=== PATIENT | male | born 1995 | race Caucasian/White ===

== ENCOUNTER 2019-03-14 20:34 | Inpatient (IN) | payer BC, OTHER ==
--- NOTE | 2019-03-14 20:51 | PDOC ---
Rapid Medical Evaluation Medical Evaluation: I have performed a brief in-person evaluation of this patient. The patient presents with a chief complaint of: Hx of HTN presents with c/o substernal CP today around 7 PM, worse with inspiration; denies fever, cough, sob; denies drug use, smoking, recent travel Pertinent physical exam findings: In NAD, lungs clear I have ordered the following: labs, ekg, cxr [unable to PERC out given tachycardia] The patient will proceed to the ED for further evaluation. 03/14/19 20:47
[2019-03-14] MEDS ORDERED: VALSARTAN 80 MG TABLET (UD) PO ONE (22:16)
[2019-03-14] MEDS ORDERED: VALSARTAN 80 MG TABLET (UD) ONE (22:23)
[2019-03-14 22:39] LABS: BASO % 1.1 % (0-2.0); EOS % 0.5 % (0-4.5); HEMATOCRIT 50.4 % (35.4-49); HEMOGLOBIN 17.4 GM/dL (11.7-16.9); LYMPH % 18.3 % (8-40); MCH 29.2 pg (25.7-33.7); MCHC 34.4 g/dl (32.0-35.9); MEAN CELL VOLUME 84.6 fl (80-96); MEAN PLT VOLUME 8.1 fl (7.5-11.1); MONO % 5.8 % (3.8-10.2); NEUT % 74.3 % (42.8-82.8); PLATELET COUNT 319 K/MM3 (134-434); RBC 5.95 M/mm3 (4.00-5.60); RDW 13.7 % (11.9-15.9); WHITE BLOOD COUNT 9.6 K/mm3 (4.0-10.0)
[2019-03-14 23:08] LABS: BLOOD UREA NITROGEN 16.4 mg/dL (7-18); CREATININE 1.2 mg/dL (0.55-1.3); POTASSIUM 4.1 mmol/L (3.5-5.1)
[2019-03-14] MEDS ORDERED: SODIUM CHLORIDE 0.9% 500 ML INFUS.BAG IV ONE (23:08)
--- NOTE | 2019-03-14 23:10 | PDOC ---
History of Present Illness - General Chief Complaint: Chest Pain Stated Complaint: HYPERTENSION,CHEST PAIN Time Seen by Provider: 03/14/19 20:47 - History of Present Illness Initial Comments: Mr. Cervantes is a 23 y/o male with PMH of left ventricular hypertrophy and renal hypertension presenting today with chest pain. Reports mid-sternal chest pain that started around 7pm today. Reports that it is intermittent in nature and episodes last around 2 min. Denies radiation. Reports that he has had chest pain before but has never had a work up. Reports that the pain is mildly exacerbated on inspiration. Denies fever, cough, trauma to the chest. Denies abdominal pain, nausea, vomiting. Denies shortness of breath. Denies leg swelling. He was taking a blood pressure medication but stopped over a year ago because he kept forgetting to take his medication. He has seen a child center assistant for the hypertension. Does not have a PCP but is planning on making an appt with one. Past History - Past Medical History Allergies/Adverse Reactions: Allergies Allergy/AdvReac Type Severity Reaction Status Date / Time No Known Allergies Allergy Verified 03/14/19 20:51 - Suicide/Smoking/Psychosocial Hx Smoking History: Never smoked Hx Alcohol Use: No Drug/Substance Use Hx: No Review of Systems - Review of Systems Comments:: ROS GENERAL/CONSTITUTIONAL: No fever or chills. No weakness._ HEAD, EYES, EARS, NOSE AND THROAT: No change in vision. No ear pain or discharge. No sore throat._ CARDIOVASCULAR: Reports chest pain. No shortness of breath. RESPIRATORY: Denies cough, hemoptysis_ GASTROINTESTINAL: No nausea, vomiting, diarrhea or constipation._ GENITOURINARY: No dysuria, frequency, or change in urination._ MUSCULOSKELETAL: No joint or muscle swelling or pain. No neck or back pain._ SKIN: No rash_ NEUROLOGIC: No headache, vertigo, loss of consciousness, or change in strength/ sensation._ ENDOCRINE: No increased thirst. No abnormal weight change_ HEMATOLOGIC/LYMPHATIC: No anemia, easy bleeding, or history of blood clots._ ALLERGIC/IMMUNOLOGIC: No hives or skin allergy._ *Physical Exam - Vital Signs Last Vital Signs Temp Pulse Resp BP Pulse Ox 99 F 116 H 19 190/102 H 100 03/14/19 20:48 03/14/19 20:48 03/14/19 20:48 03/14/19 20:48 03/14/19 20:48 - Physical Exam Comments: PE GENERAL: Awake, alert, and oriented to person/place/time, in no acute distress_ HEAD: No signs of trauma, normocephalic, atraumatic _ EYES: PERRLA, EOMI, sclera anicteric, conjunctiva clear_ ENT: Hearing grossly normal, nares patent, oropharynx clear without exudates. No uvular deviation. Moist mucosa_ NECK: Normal ROM, supple, no lymphadenopathy, JVD, or masses_ CHEST: No tenderness to palpation of the chest wall. LUNGS: No distress, speaks in full sentences, clear to auscultation bilaterally _ HEART: Regular rate and rhythm, normal S1 and S2, no murmurs appreciated, peripheral pulses normal and equal bilaterally._ ABDOMEN: Soft, nontender, normoactive bowel sounds. No guarding, no rebound. No masses_ EXTREMITIES: Normal inspection, Normal range of motion, no edema. No clubbing or cyanosis_ NEUROLOGICAL: Cranial nerves II through XII grossly intact. Normal speech, normal gait, no focal sensorimotor deficits _ SKIN: Warm, Dry, normal turgor, no rashes or lesions noted_ ED Treatment Course - LABORATORY CBC & Chemistry Diagram: 03/14/19 22:25 03/14/19 22:25 - ADDITIONAL ORDERS Additional order review: Laboratory Results 03/14/19 03/14/19 22:25 22:25 D-Dimer < 215 Sodium 140 Potassium 4.1 Chloride 106 Carbon Dioxide 26 Anion Gap 8 BUN 16.4 Creatinine 1.2 Est GFR (CKD-EPI)AfAm 98.19 Est GFR (CKD-EPI)NonAf 84.72 Random Glucose 95 Calcium 10.0 03/14/19 22:25 RBC 5.95 H MCV 84.6 MCHC 34.4 RDW 13.7 MPV 8.1 Neutrophils % 74.3 Lymphocytes % 18.3 Monocytes % 5.8 Eosinophils % 0.5 Basophils % 1.1 - Medications Given in the ED: ED Medications Discontinued Medications Generic Name Dose Route Start Last Admin Trade Name Freq PRN Reason Stop Dose Admin Valsartan 80 mg 03/14/19 22:16 03/14/19 22:35 Diovan - PO 03/14/19 22:17 80 mg ONCE ONE Administration Medical Decision Making - Medical Decision Making 23M with hx of HTN (not on medications) and LVH presenting today with new onset chest pain. Started at 7pm. Non-radiating. 03/14/19 2300 EKG shows sinus tachycardia HR 101, likely left ventricular hypertrophy, no ST elevation/depression, QTc 420 ms. 03/14/19 23:10 Pt reevaluated. BP 155/97 after diovan. 03/14/19 2345 Labs reviewed. Troponin wnl. CK elevated at 488. Given that the patient does not have a PCP or reliable follow up, has not been able to control his BP with medications over the past year, and new onset chest pain, plan to admit for cardiac monitoring, repeat trop, echo, cardiology consult. *DC/Admit/Observation/Transfer Diagnosis at time of Disposition: Chest pain Qualifiers: Chest pain type: unspecified Qualified Code(s): R07.9 - Chest pain, unspecified Hypertension Qualifiers: Hypertension type: unspecified Qualified Code(s): I10 - Essential (primary) hypertension - Discharge Dispostion Condition at time of disposition: Stable Decision to Admit order: Yes - Referrals - Patient Instructions - Post Discharge Activity
[2019-03-15] MEDS ORDERED: LISINOPRIL 5 MG TABLET (FP) PO SCH (00:23)
--- NOTE | 2019-03-15 00:23 | PDOC ---
Documentation entered by Leonardo Otero SCRIBE, acting as scribe for Rani Valdes MD. Rani Valdes MD: This documentation has been prepared by the Branden lizarraga Xhesika, SCRIBE, under my direction and personally reviewed by me in its entirety. I confirm that the documentation accurately reflects all work, treatment, procedures, and medical decision making performed by me. Attending Attestation - Resident Resident Name: Mark Muir - ED Attending Attestation I have performed the following: I have examined & evaluated the patient, The case was reviewed & discussed with the resident, I agree w/resident's findings & plan - HPI HPI: 03/14/19 22:24 The patient is a 23 year old male with a significant PMH of HTN who presents to the emergency department with substernal chest pain since 7PM. Patient states his chest pain is worsened with deep inspiration. The patient states he has not been complaint with his HTN medication for the past year. The patient denies shortness of breath, headache and dizziness. Denies fever, chills, cough, nausea , vomiting, diarrhea and constipation. Denies dysuria, frequency, urgency and hematuria. Allergies: NKDA - Physicial Exam PE: 03/14/19 22:25 GENERAL: Awake, alert, and fully oriented, in no acute distress HEAD: No signs of trauma EYES: PERRLA, EOMI, sclera anicteric, conjunctiva clear ENT: Auricles normal inspection, hearing grossly normal, nares patent, oropharynx clear without exudates. Moist mucosa NECK: Normal ROM, supple, no lymphadenopathy, JVD, or masses LUNGS: Breath sounds equal, clear to auscultation bilaterally. No wheezes, and no crackles HEART: Regular rate and rhythm, normal S1 and S2, no murmurs, rubs or gallops ABDOMEN: Soft, nontender, normoactive bowel sounds. No guarding, no rebound. No masses EXTREMITIES: Normal range of motion, no edema. No clubbing or cyanosis. No cords, erythema, or tenderness NEUROLOGICAL: Cranial nerves II through XII grossly intact. Normal speech, normal gait SKIN: Warm, Dry, normal turgor, no rashes or lesions noted. - Medical Decision Making 03/14/19 23:07 Pt's ddimer is negative Pt's Hb/HCT high; possibly dehydration. 03/14/19 23:08 CXR shows cardiomegaly. 03/15/19 03:32 Patient Name: MARLENE SYKES THIS IS A PRELIMINARY REPORT FROM [facility] DATE OF SERVICE: 2019-03-15 01:08:27 IMAGES: 21 EXAM: ULTRASOUND RENAL No renal mass, stones or hydronephrosis. 03/15/19 06:04 Pt will be admitted for serial cardiac enzymes, as his chest pain only started at 7PM in the night.
[2019-03-15] MEDS ORDERED: LACTATED RINGERS SOLUTION 1,000 ML/1,000 ML INFUS.BAG IV SCH (00:45)
[2019-03-15] MEDS ORDERED: LISINOPRIL 5 MG TABLET (FP) ONE (02:43)
--- NOTE | 2019-03-15 03:18 | HP ---
<Sanchez Kirk - Last Filed: 03/16/19 08:05> CHIEF COMPLAINT: PCP: HISTORY OF PRESENT ILLNESS: ER course was notable for: (1) (2) (3) Recent Travel: PAST MEDICAL HISTORY: PAST SURGICAL HISTORY: Social History: Smoking: Alcohol: Drugs: Family History: Allergies No Known Allergies Allergy (Verified 03/14/19 20:51) HOME MEDICATIONS: Home Medications Medication Instructions Recorded Mesalamine [Apriso] 1.5 gm PO DAILY 03/15/19 REVIEW OF SYSTEMS CONSTITUTIONAL: Absent: fever, chills, diaphoresis, generalized weakness, malaise, loss of appetite, weight change HEENT: Absent: rhinorrhea, nasal congestion, throat pain, throat swelling, difficulty swallowing, mouth swelling, ear pain, eye pain, visual changes CARDIOVASCULAR: Absent: chest pain, syncope, palpitations, irregular heart rate, lightheadedness , peripheral edema RESPIRATORY: Absent: cough, shortness of breath, dyspnea with exertion, orthopnea, wheezing, stridor, hemoptysis GASTROINTESTINAL: Absent: abdominal pain, abdominal distension, nausea, vomiting, diarrhea, constipation, melena, hematochezia GENITOURINARY: Absent: dysuria, frequency, urgency, hesitancy, hematuria, flank pain, genital pain MUSCULOSKELETAL: Absent: myalgia, arthralgia, joint swelling, back pain, neck pain SKIN: Absent: rash, itching, pallor HEMATOLOGIC/IMMUNOLOGIC: Absent: easy bleeding, easy bruising, lymphadenopathy, frequent infections ENDOCRINE: Absent: unexplained weight gain, unexplained weight loss, heat intolerance, cold intolerance NEUROLOGIC: Absent: headache, focal weakness or paresthesias, dizziness, unsteady gait, seizure, mental status changes, bladder or bowel incontinence PSYCHIATRIC: Absent: anxiety, depression, suicidal or homicidal ideation, hallucinations. PHYSICAL EXAMINATION Vital Signs - 24 hr 03/15/19 03/15/19 03/15/19 09:40 11:56 13:08 Temperature 98.2 F 98.9 F Pulse Rate 95 H Pulse Rate [ 98 H 80 Right] Respiratory 20 Rate Blood Pressure 158/110 H Blood Pressure 170/113 H 165/105 H [Left Arm] O2 Sat by Pulse 100 99 97 Oximetry (%) 03/15/19 03/15/19 03/15/19 16:12 18:20 21:00 Temperature 97.7 F 98 F Pulse Rate 70 73 Pulse Rate [ Right] Respiratory 19 18 Rate Blood Pressure 156/82 144/77 Blood Pressure [Left Arm] O2 Sat by Pulse 99 Oximetry (%) 03/15/19 03/16/19 03/16/19 22:00 02:00 06:00 Temperature 97.8 F 98.1 F 97.8 F Pulse Rate 84 59 L 59 L Pulse Rate [ Right] Respiratory 16 18 18 Rate Blood Pressure 123/87 138/79 140/68 Blood Pressure [Left Arm] O2 Sat by Pulse Oximetry (%) GENERAL: Awake, alert, and fully oriented, in no acute distress. HEAD: Normal with no signs of trauma. EYES: Pupils equal, round and reactive to light, extraocular movements intact, sclera anicteric, conjunctiva clear. No lid lag. EARS, NOSE, THROAT: Ears normal, nares patent, oropharynx clear without exudates. Moist mucous membranes. NECK: Normal range of motion, supple without lymphadenopathy, JVD, or masses. LUNGS: Breath sounds equal, clear to auscultation bilaterally. No wheezes, and no crackles. No accessory muscle use. HEART: Regular rate and rhythm, normal S1 and S2 without murmur, rub or gallop. ABDOMEN: Soft, nontender, not distended, normoactive bowel sounds, no guarding, no rebound, no masses. No hepatomegaly or splenomegaly. MUSCULOSKELETAL: Normal range of motion at all joints. No bony deformities or tenderness. No CVA tenderness. UPPER EXTREMITIES: 2+ pulses, warm, well-perfused. No cyanosis. No clubbing. No peripheral edema. LOWER EXTREMITIES: 2+ pulses, warm, well-perfused. No calf tenderness. No peripheral edema. NEUROLOGICAL: Cranial nerves II-XII intact. Normal speech. Normal gait. PSYCHIATRIC: Cooperative. Good eye contact. Appropriate mood and affect. SKIN: Warm, dry, normal turgor, no rashes or lesions noted, normal capillary refill. Laboratory Results - last 24 hr 03/15/19 03/15/19 03/15/19 00:30 05:15 06:30 Sodium 140 Potassium 4.2 Chloride 106 Carbon Dioxide 29 Anion Gap 5 L BUN 12.3 Creatinine 1.1 Est GFR (CKD-EPI)AfAm 109.09 Est GFR (CKD-EPI)NonAf 94.12 Random Glucose 91 Hemoglobin A1c % 5.3 Calcium 9.7 Phosphorus Magnesium 2.2 Total Bilirubin 0.6 AST 29 ALT 93 H Alkaline Phosphatase 73 Creatine Kinase 344 H Creatine Kinase Index 0.4 CK-MB (CK-2) 1.6 Troponin I < 0.02 Total Protein 8.0 Albumin 4.6 Triglycerides Cholesterol Total LDL Cholesterol HDL Cholesterol TSH 2.00 2.10 D Urine Color Urine Appearance Urine pH Ur Specific [place] Urine Protein Urine Glucose (UA) Urine Ketones Urine Blood Urine Nitrite Urine Bilirubin Urine Urobilinogen Ur Leukocyte Esterase 03/15/19 03/16/19 17:30 06:00 Sodium 142 Potassium 4.6 Chloride 106 Carbon Dioxide 29 Anion Gap 8 BUN 11.7 Creatinine 1.0 Est GFR (CKD-EPI)AfAm 122.41 Est GFR (CKD-EPI)NonAf 105.62 Random Glucose 85 Hemoglobin A1c % Calcium 9.7 Phosphorus 4.4 Magnesium 2.4 Total Bilirubin 1.0 AST 41 H ALT 105 H Alkaline Phosphatase 76 Creatine Kinase Creatine Kinase Index CK-MB (CK-2) Troponin I Total Protein 8.1 Albumin 4.5 Triglycerides 119 Cholesterol 133 Total LDL Cholesterol 82 HDL Cholesterol 32 L TSH Urine Color Yellow Urine Appearance Clear Urine pH 6.0 Ur Specific [place] 1.014 Urine Protein Negative Urine Glucose (UA) Negative Urine Ketones Negative Urine Blood Negative Urine Nitrite Negative Urine Bilirubin Negative Urine Urobilinogen 0.2 Ur Leukocyte Esterase Negative ASSESSMENT/PLAN: ATTENDING PHYSICIAN STATEMENT I saw and evaluated the patient. I reviewed the resident's note and discussed the case with the resident. I agree with the resident's findings and plan as documented. SUBJECTIVE: OBJECTIVE: ASSESSMENT AND PLAN: <Kalani Spicer - Last Filed: 03/18/19 06:32> CHIEF COMPLAINT: chest pain PCP: none HISTORY OF PRESENT ILLNESS: 23M w/ pmhx of renovascular HTN, Crohn's disease, ? HOCM presents in the ED with chest pain. States onset of chest pain happened while at a baseball game. Described as non-radiating, pressure-like pain localized to the mid-sternum. Has had similar pain like this in the past, but a recent BP check which showed systolic in the 170s prompted his ED visit for further work up. Pt has known history of HTN, but has stopped taking his BP medications for as he was asymptomatic. Does not follow up with a PCP. Additionally, pt does follow a GI physician as he has a known hx of Crohn's disease diagnosed years ago, with a recent exacerbation and was started on Apriso this past week. Currently does not take any other home meds regularly. ER course was notable for: (1) H/H 17.4/50.4, CK 488 (2) CXR, Renal U/S, CT abd ordered (3) Recent Travel: Denies PAST MEDICAL HISTORY: Renovascular HTN Crohn's Disease ? HOCM PAST SURGICAL HISTORY: Denies Social History: Smoking: Denies Alcohol: Denies Drugs: Denies Family History: Maternal Grandfather- DM Allergies No Known Allergies Allergy (Verified 03/14/19 20:51) HOME MEDICATIONS: Apriso QD REVIEW OF SYSTEMS CONSTITUTIONAL: Absent: fever, chills, diaphoresis, generalized weakness, malaise, loss of appetite, weight change HEENT: Absent: rhinorrhea, nasal congestion, throat pain, throat swelling, difficulty swallowing, mouth swelling, ear pain, eye pain, visual changes CARDIOVASCULAR: Absent: chest pain, syncope, palpitations, irregular heart rate, lightheadedness , peripheral edema RESPIRATORY: Absent: cough, shortness of breath, dyspnea with exertion, orthopnea, wheezing, stridor, hemoptysis GASTROINTESTINAL: Absent: abdominal pain, abdominal distension, nausea, vomiting, diarrhea, constipation, melena, hematochezia GENITOURINARY: Absent: dysuria, frequency, urgency, hesitancy, hematuria, flank pain, genital pain MUSCULOSKELETAL: Absent: myalgia, arthralgia, joint swelling, back pain, neck pain SKIN: Absent: rash, itching, pallor HEMATOLOGIC/IMMUNOLOGIC: Absent: easy bleeding, easy bruising, lymphadenopathy, frequent infections ENDOCRINE: Absent: unexplained weight gain, unexplained weight loss, heat intolerance, cold intolerance NEUROLOGIC: Absent: headache, focal weakness or paresthesias, dizziness, unsteady gait, seizure, mental status changes, bladder or bowel incontinence PSYCHIATRIC: Absent: anxiety, depression, suicidal or homicidal ideation, hallucinations. PHYSICAL EXAMINATION Vital Signs - 24 hr 03/14/19 20:48 Temperature 99 F Pulse Rate 116 H Respiratory 19 Rate Blood Pressure 190/102 H O2 Sat by Pulse 100 Oximetry (%) AAOx3. NAD. Resting comfortably. AT/NC. Moist mucus membranes. Lungs CTA B/L RRR. Normal S1, S2. No murmurs. Obese. Abd soft, NT/ND. No peripheral edema noted b/l. 2+ dorsalis pedis pulses b/l. Responds to questions appropriately. Laboratory Results - last 24 hr 03/14/19 03/14/19 03/14/19 22:25 22:25 22:25 WBC 9.6 RBC 5.95 H Hgb 17.4 H Hct 50.4 H MCV 84.6 MCH 29.2 MCHC 34.4 RDW 13.7 Plt Count 319 MPV 8.1 Absolute Neuts (auto) 7.2 Neutrophils % 74.3 Lymphocytes % 18.3 Monocytes % 5.8 Eosinophils % 0.5 Basophils % 1.1 Nucleated RBC % 0 D-Dimer < 215 Sodium 140 Potassium 4.1 Chloride 106 Carbon Dioxide 26 Anion Gap 8 BUN 16.4 Creatinine 1.2 Est GFR (CKD-EPI)AfAm 98.19 Est GFR (CKD-EPI)NonAf 84.72 Random Glucose 95 Calcium 10.0 Creatine Kinase Creatine Kinase Index CK-MB (CK-2) Troponin I 03/14/19 22:25 WBC RBC Hgb Hct MCV MCH MCHC RDW Plt Count MPV Absolute Neuts (auto) Neutrophils % Lymphocytes % Monocytes % Eosinophils % Basophils % Nucleated RBC % D-Dimer Sodium Potassium Chloride Carbon Dioxide Anion Gap BUN Creatinine Est GFR (CKD-EPI)AfAm Est GFR (CKD-EPI)NonAf Random Glucose Calcium Creatine Kinase 488 H Creatine Kinase Index 0.5 CK-MB (CK-2) 2.8 Troponin I < 0.02 IMAGING: * CXR: pending * Renal U/S: pending * CTAP: pending ASSESSMENT/PLAN: 23M w/ pmhx of renovascular HTN, Crohn's disease, ? HOCM presents in the ED with chest pain. #Hypertensive Emergency, 2/2 renovascular HTN vs. LVH -Initial BP 190/102 +chest pain; given Valsartan in ED x1 -Will start on Lisinopril 5 mg QD -Echo ordered to assess LV function -daily BP checks -Will likely need PCP follow up upon d/c for better BP management #Hx of LVH -echo ordered #Elevated CPK -IVf -cont to trend #Duplicated R renal artery -Pt states he has hx of renal HTN but was lost to follow up and has not been on medications. Will obtain additional imaging for further work up. -Renal U/S (prelim read) shows no evid of hydronephrosis -CTAP (prelim read) shows duplicate renal arteries; no stenosis noted b/l. Follow up final read. -Nephro consulted (Dr. Tipton) #Polycythemia; unknown etiology -Mildly elevated, H/H 17.4/50/4 -Retic count and erythropoietin ordered Prophylaxis DVT: Early ambulation, SCDs FEN -IVf -recheck lytes in AM -sodium-controlled diet Dispo -admit to tele Visit type - Emergency Visit Emergency Visit: Yes ED Registration Date: 03/14/19 Care time: The patient presented to the Emergency Department on the above date and was hospitalized for further evaluation of their emergent condition. - New Patient This patient is new to me today: No - Critical Care Critical Care patient: No ATTENDING PHYSICIAN STATEMENT I saw and evaluated the patient. I reviewed the resident's note and discussed the case with the resident. I agree with the resident's findings and plan as documented. SUBJECTIVE: OBJECTIVE: ASSESSMENT AND PLAN:
[2019-03-15 03:53] LABS: CHOLESTEROL 113 mg/dL (50-200); HDL CHOLESTEROL 26 mg/dL (40-60); TRIGLYCERIDES 148 mg/dL (0-150)
--- NOTE | 2019-03-15 04:19 | PN ---
Teaching Attending Note Name of Resident: Kalani Spicer ATTENDING PHYSICIAN STATEMENT I saw and evaluated the patient. I reviewed the resident's note and discussed the case with the resident. I agree with the resident's findings and plan as documented. Seen and examined; please refer to resident note for further hsitorical information. Briefly, this is a 23 y/o male presenting for chest pain at rest during an emotional moment during a baseball game associated with transient dizziness but no syncope. No current sx but noted to be hypertensive to the 190s on arrival. He is found on CT to have duplicated R-renal artery with patent arteries with no stenosis; he is also found to have small anterior mediastinal soft tissue as well as a transitional LS vertebrae and hepatic steatosis. No family hx HOCM but he tells us he has a history of "LVH;" no FH sudden CV , etc. VS, labs, imaging reviewed NAD, AAO, resting in bed RRR s1/2 no mgr Lungs CTAB, w/ sym exp NT ND +BS CN2-12 wnl, no fnd Normal mood, appropriate behavior CT prelim results discussed above with final report pending EKG reviewed Echo pending US renal wnl ASSESSMENT AND PLAN: Patient presents with CP, dizziness and elevated BP to the 190s suspicious for HTN emergency. He informs us that he had a diagnosis of a problem with his renal arteries and LVH but he was lost to followup and we have no old information available at this time. 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 -Consulting nephrology for further assessment; unclear if relation to supposed renovasc. HTN # Obesity -Door Puller regarding weight loss, consider referral to bariatrics # Hepatic Steatosis -Recommend weight loss Full Code
[2019-03-15 06:49] LABS: BASO % 1.1 % (0-2.0); EOS % 0.5 % (0-4.5); HEMATOCRIT 48.6 % (35.4-49); HEMOGLOBIN 16.8 GM/dL (11.7-16.9); LYMPH % 19.3 % (8-40); MCH 29.5 pg (25.7-33.7); MCHC 34.6 g/dl (32.0-35.9); MEAN CELL VOLUME 85.2 fl (80-96); MONO % 5.7 % (3.8-10.2); NEUT % 73.4 % (42.8-82.8); PLATELET COUNT 304 K/MM3 (134-434); RDW 13.6 % (11.9-15.9); WHITE BLOOD COUNT 10.5 K/mm3 (4.0-10.0)
[2019-03-15 07:28] LABS: ALBUMIN 4.6 g/dl (3.4-5.0); BILIRUBIN,TOTAL 0.6 mg/dL (0.2-1); BLOOD UREA NITROGEN 12.3 mg/dL (7-18); CALCIUM 9.7 mg/dL (8.5-10.1); CREATININE 1.1 mg/dL (0.55-1.3); MAGNESIUM 2.2 mg/dL (1.8-2.4); POTASSIUM 4.2 mmol/L (3.5-5.1)
[2019-03-15 07:29] LABS: COCAINE, UR NEGATIVE ng/ml (CUTOFF=300); METHADONE, UR NEGATIVE ng/ml (CUTOFF=300); OPIATES, URI NEGATIVE ng/ml (CUTOFF=300); PHENCYCLIDINE,URINE NEGATIVE ng/ml (CUTOFF=25); URINE AMPHETAMINES NEGATIVE ng/ml (CUTOFF=500); URINE BARBITURATES NEGATIVE ng/ml (CUTOFF=200); URINE BENZODIAZEPINES NEGATIVE ng/ml (CUTOFF=200)
[2019-03-15] MEDS ORDERED: amLODIPine BESYLATE 5 MG TABLET (FP) ONE (09:24)
[2019-03-15] MEDS ORDERED: amLODIPine BESYLATE 5 MG TABLET (FP) PO ONE ×2 (09:30→12:02)
[2019-03-15 13:42] VITALS: BMI 39.5
--- NOTE | 2019-03-15 14:05 | CON.NEP ---
Consult Consult Specialty:: Nephrology Reason for Consultation:: htn - History of Present Illness Chief Complaint: chest pain History of Present Illness: 23M w/ pmhx of HTN, Crohn's disease, ? HOCJed presents in the ED with chest pain. States onset of chest pain happened while at a baseball game. Described as non-radiating, pressure-like pain localized to the mid-sternum. Has had similar pain like this in the past, but a recent BP check which showed systolic in the 170s prompted his ED visit for further work up. Pt has known history of HTN, but has stopped taking his BP medications for as he was asymptomatic. Does not follow up with a PCP. Additionally, pt does follow a GI physician as he has a known hx of Crohn's disease diagnosed years ago, with a recent exacerbation and was started on Apriso this past week. Currently does not take any other home meds regularly. Pt denied ever being told he has renovascular hypertension. He does say he has had htn since age 12 and was on medication but did not take them for a very long time. Does have a family history of htn. No h/o urinary tract infections - History Source History Provided By: Patient, Medical Record - Past Medical History Cardio/Vascular: Yes: HTN Gastrointestinal: Yes: Crohn's Disease - Alcohol/Substance Use Hx Alcohol Use: No - Smoking History Smoking history: Never smoked Have you smoked in the past 12 months: No Home Medications - Allergies Allergies/Adverse Reactions: Allergies Allergy/AdvReac Type Severity Reaction Status Date / Time No Known Allergies Allergy Verified 03/14/19 20:51 - Home Medications Home Medications: Ambulatory Orders Mesalamine [Apriso] 1.5 gm PO DAILY 03/15/19 Review of Systems - Review of Systems Constitutional: reports: No Symptoms Eyes: reports: No Symptoms HENT: reports: No Symptoms Neck: reports: No Symptoms Cardiovascular: reports: Chest Pain Respiratory: reports: No Symptoms Gastrointestinal: reports: Rectal Bleeding Genitourinary: reports: No Symptoms Breasts: reports: No Symptoms Reported Musculoskeletal: reports: No Symptoms Integumentary: reports: No Symptoms Neurological: reports: No Symptoms Endocrine: reports: No Symptoms Hematology/Lymphatic: reports: No Symptoms Psychiatric: reports: No Symptoms Nephrology Consult - Height Height: 5 ft 9 in - Weight Weight: 267 lb 9.6 oz - BMI Body Mass Index (BMI): 39.5 - Lab Results CBC,BMP: CBC, BMP 03/15/19 06:30 03/15/19 06:30 Anion Gap: Anion Gap Anion Gap 5 MMOL/L (8-16) L 03/15/19 06:30 - Imaging Cat Scan: Report Reviewed Ultrasound: Report Reviewed - Physical Examination Vital Signs: Vital Signs Temperature 98.9 F 03/15/19 13:08 Pulse Rate 95 H 03/15/19 13:08 Respiratory Rate 20 03/15/19 13:08 Blood Pressure 158/110 H 03/15/19 13:08 O2 Sat by Pulse Oximetry (%) 97 03/15/19 13:08 Constitutional: Yes: No Distress, Calm Eyes: Yes: Conjunctiva Clear HENT: Yes: Atraumatic, Normocephalic Neck: Yes: Supple, Trachea Midline Cardiovascular: Yes: Regular Rate and Rhythm Respiratory: Yes: Regular, CTA Bilaterally Gastrointestinal: Yes: Normal Bowel Sounds, Soft, Other (no bruit) Renal/: Yes: WNL Musculoskeletal: Yes: WNL Extremities: Yes: WNL Edema: No Peripheral Pulses WNL: Yes Wound/Incision: Yes: Well Approximated Neurological: Yes: Alert, Oriented Psychiatric: Yes: Alert, Oriented Assessment/Plan IMPRESSION essential htn is likely.- very high due to noncompliance with meds. h/o Crohns does have a slight murmur PLAN already had CTA and renal sono which was normal Would give amlodipine and lisinopril to start check ua to see if he has proteinuria which may mean chronic gn is a cause for his BP cardio eval MV
--- NOTE | 2019-03-15 14:54 | CON.CARD ---
Consult Consult Specialty:: Cardiology Referred by:: Hospitalist Reason for Consultation:: Cardiac evaluation (Coverage for Dr. Wayne) - History of Present Illness Chief Complaint: Chest pain History of Present Illness: Patient is a 23 year old male [employer] with underlying history of HTN, Crohn's disease, ?HOCM who presents to ED with chest pain yesterday. He stopped taking his medication for HTN 1 year ago. Pain ws localized to mid sternum without radiation. Currently, he is asymptomatic. He denies shortness of breath or palpitations. He denies paroxysmal nocturnal dyspnea or orthopnea. He denies fever or chills. He denies nausea, vomiting, diarrhea or abdominal pain. He denies headache or lightheadedness. - History Source History Provided By: Patient, Medical Record Limitations to Obtaining History: No Limitations - Past Medical History Cardio/Vascular: Yes: HTN Gastrointestinal: Yes: Crohn's Disease - Past Surgical History Past Surgical History: Yes: None - Alcohol/Substance Use Hx Alcohol Use: No - Smoking History Smoking history: Never smoked Have you smoked in the past 12 months: No Home Medications - Allergies Allergies/Adverse Reactions: Allergies Allergy/AdvReac Type Severity Reaction Status Date / Time No Known Allergies Allergy Verified 03/14/19 20:51 - Home Medications Home Medications: Ambulatory Orders Mesalamine [Apriso] 1.5 gm PO DAILY 03/15/19 Family Disease History - Family Disease History Family Disease History: Diabetes: Grandparent Review of Systems - Review of Systems Constitutional: denies: Chills, Fever Cardiovascular: reports: Chest Pain. denies: Palpitations, Shortness of Breath Respiratory: denies: Cough, SOB, SOB on Exertion Gastrointestinal: denies: Abdominal Pain, Constipation, Diarrhea, Melena, Nausea , Rectal Bleeding, Vomiting Musculoskeletal: denies: Joint Pain Neurological: denies: Dizziness, Headache, Seizure, Syncope Vital Signs: Vital Signs Temperature 98.9 F 03/15/19 13:08 Pulse Rate 95 H 03/15/19 13:08 Respiratory Rate 20 03/15/19 13:08 Blood Pressure 158/110 H 03/15/19 13:08 O2 Sat by Pulse Oximetry (%) 97 03/15/19 13:08 Neck: Yes: Supple Respiratory: Yes: CTA Bilaterally Gastrointestinal: Yes: Normal Bowel Sounds, Soft. No: Tenderness Cardiovascular: Yes: Regular Rate and Rhythm JVD: No Carotid Bruit: No PMI: Non-Displaced Heart Sounds: Yes: S1, S2 Murmur: No: Systolic Murmur, Diastolic Murmur Edema: No - Other Data Labs, Other Data: CBC, BMP 03/15/19 06:30 03/15/19 06:30 Troponin, BNP 03/14/19 03/15/19 03/15/19 22:25 03:00 05:15 Troponin I < 0.02 < 0.02 B-Natriuretic Peptide < 5.0 L 03/15/19 06:30 Troponin I < 0.02 B-Natriuretic Peptide Troponin, BNP 03/14/19 03/15/19 03/15/19 22:25 03:00 05:15 Troponin I < 0.02 < 0.02 B-Natriuretic Peptide < 5.0 L 03/15/19 06:30 Troponin I < 0.02 B-Natriuretic Peptide Imaging - Results Chest X-ray: Report Reviewed (Unremarkable) Cat Scan: Report Reviewed (Abdominal CT noted) Ultrasound: Report Reviewed (Renal US noted) EKG: Report Reviewed Problem List - Problems (1) Crohns disease Code(s): K50.90 - CROHN'S DISEASE, UNSPECIFIED, WITHOUT COMPLICATIONS (2) Chest pain Code(s): R07.9 - CHEST PAIN, UNSPECIFIED Qualifiers: Chest pain type: unspecified Qualified Code(s): R07.9 - Chest pain, unspecified (3) Hypertension Code(s): I10 - ESSENTIAL (PRIMARY) HYPERTENSION Qualifiers: Hypertension type: unspecified Qualified Code(s): I10 - Essential (primary ) hypertension Assessment/Plan 1. HTN 2. Chest pain syndrome, atypical 3. Crohn's disease PLAN: 1. Unclear whether he has HOCM. Vasodilator such as Amlodipine should be avoided if he does have HOCM. ACEI can be used with caution although it is a afterload public health assistant. Ideally beta jonh would be suggested. Start Metoprolol Tartrate 25 mg BID and uptitrate 2. Echocardiography to assess LV/RV and valvular function 3. Renal input noted 4. Treatment for Crohn's 5. Troponins are negative Further plans are to follow Swapnil Bennett MD
[2019-03-15] MEDS ORDERED: METOPROLOL TARTRATE 25 MG TABLET (FP) PO ONE (15:30)
--- NOTE | 2019-03-15 16:39 | HOSP ---
Subjective - Review of Symptoms Events since last encounter: Patient is doing better with no acute distress. Discussed with gas or water meter installer , possible that the patient has Hocm, ordered echo for Sunday but the patient frank 't stay till Sunday , would like to follow up with the gas or water meter installer and have it done on Sunday. Medications to avoid at this time CCB. started on Toprol Xl by the gas or water meter installer and Lisinopril By , Dr. Bennett is ok with toprol and Lisinopril, will need to control the blood pressure closely and keep it under control. Studies Renal Us and abdomen and pelvis cta reviewed. Vital Signs Temperature 97.7 F 03/15/19 16:12 Pulse Rate 70 03/15/19 16:12 Respiratory Rate 19 03/15/19 16:12 Blood Pressure 156/82 03/15/19 16:12 O2 Sat by Pulse Oximetry (%) 97 03/15/19 13:08 Physical Examination Vital Signs: Vital Signs Temperature 97.7 F 03/15/19 16:12 Pulse Rate 70 03/15/19 16:12 Respiratory Rate 03/15/19 16:12 Blood Pressure 156/82 03/15/19 16:12 O2 Sat by Pulse Oximetry (%) 97 03/15/19 13:08 Labs: CBC, BMP 03/15/19 06:30 03/15/19 06:30
[2019-03-15 18:44] LABS: URINE APPEARANCE CLEAR; URINE BILIRUBIN NEGATIVE (NEGATIVE); URINE COLOR YELLOW; URINE GLUCOSE (UA) NEGATIVE (NEGATIVE); URINE KETONE NEGATIVE (NEGATIVE); URINE LEUK ESTERASE NEGATIVE (NEGATIVE); URINE NITRITE NEGATIVE (NEGATIVE); URINE PROTEIN NEGATIVE (NEGATIVE); URINE UROBILINOGEN 0.2 mg/dL (0.2-1.0)
[2019-03-15] MEDS: METOPROLOL TARTRATE 25 MG TABLET (FP) PO SCH (21:32)
[2019-03-16 07:29] LABS: ALBUMIN 4.5 g/dl (3.4-5.0); BLOOD UREA NITROGEN 11.7 mg/dL (7-18); CALCIUM 9.7 mg/dL (8.5-10.1); MAGNESIUM 2.4 mg/dL (1.8-2.4); PHOSPHOROUS 4.4 mg/dL (2.5-4.9); POTASSIUM 4.6 mmol/L (3.5-5.1); TOT PROT 8.1 g/dl (6.4-8.2)
--- NOTE | 2019-03-16 07:56 | PN ---
Teaching Attending Note Name of Resident: Danielle Omer ATTENDING PHYSICIAN STATEMENT I saw and evaluated the patient. I reviewed the resident's note and discussed the case with the resident. I agree with the resident's findings and plan as documented. SUBJECTIVE: Patient is feeling better but wants to go home. OBJECTIVE: Vital Signs Temperature 97.8 F 03/16/19 06:00 Pulse Rate 59 L 03/16/19 06:00 Respiratory Rate 18 03/16/19 06:00 Blood Pressure 140/68 03/16/19 06:00 O2 Sat by Pulse Oximetry (%) 99 03/15/19 21:00 GENERAL: The patient is awake, alert, and fully oriented, in no acute distress. HEAD: Normal with no signs of trauma. EYES: PERRL, extraocular movements intact, sclera anicteric, conjunctiva clear. No ptosis. ENT: Ears normal, nares patent, oropharynx clear without exudates, moist mucous membranes. NECK: Trachea midline, full range of motion, supple. LUNGS: Breath sounds equal, clear to auscultation bilaterally, no wheezes, no crackles, no accessory muscle use. HEART: Regular rate and rhythm, S1, S2 without murmur, rub or gallop. ABDOMEN: Soft, nontender, nondistended, normoactive bowel sounds, no guarding, no rebound, no hepatosplenomegaly, no masses. EXTREMITIES: 2+ pulses, warm, well-perfused, no edema. NEUROLOGICAL: Cranial nerves II through XII grossly intact. Normal speech, gait is stable . PSYCH: Normal mood, normal affect. SKIN: Warm, dry, normal turgor, no rashes or lesions noted CBCD WBC 10.5 K/mm3 (4.0-10.0) H 03/15/19 06:30 RBC 5.70 M/mm3 (4.00-5.60) H 03/15/19 06:30 Hgb 16.8 GM/dL (11.7-16.9) 03/15/19 06:30 Hct 48.6 % (35.4-49) 03/15/19 06:30 MCV 85.2 fl (80-96) 03/15/19 06:30 MCHC 34.6 g/dl (32.0-35.9) 03/15/19 06:30 RDW 13.6 % (11.9-15.9) 03/15/19 06:30 Plt Count 304 K/MM3 (134-434) 03/15/19 06:30 MPV 8.0 fl (7.5-11.1) 03/15/19 06:30 CMP Sodium 142 mmol/L (136-145) 03/16/19 06:00 Potassium 4.6 mmol/L (3.5-5.1) 03/16/19 06:00 Chloride 106 mmol/L (98-107) 03/16/19 06:00 Carbon Dioxide 29 mmol/L (21-32) 03/16/19 06:00 Anion Gap 8 MMOL/L (8-16) 03/16/19 06:00 BUN 11.7 mg/dL (7-18) 03/16/19 06:00 Creatinine 1.0 mg/dL (0.55-1.3) 03/16/19 06:00 Random Glucose 85 mg/dL (74-106) 03/16/19 06:00 Calcium 9.7 mg/dL (8.5-10.1) 03/16/19 06:00 Total Bilirubin 1.0 mg/dL (0.2-1) 03/16/19 06:00 AST 41 U/L (15-37) H 03/16/19 06:00 ALT 105 U/L (13-61) H 03/16/19 06:00 Alkaline Phosphatase 76 U/L (45-117) 03/16/19 06:00 Total Protein 8.1 g/dl (6.4-8.2) 03/16/19 06:00 Albumin 4.5 g/dl (3.4-5.0) 03/16/19 06:00 CARDIAC ENZYMES Creatine Kinase 344 U/L (26-308) H 03/15/19 06:30 Troponin I < 0.02 ng/ml (0.00-0.05) 03/15/19 06:30 Current Medications Generic Name Dose Route Start Last Admin Trade Name Freq PRN Reason Stop Dose Admin Lisinopril 10 mg 03/16/19 10:00 Prinivil PO DAILY TARYN Metoprolol Tartrate 25 mg 03/15/19 22:00 03/15/19 21:32 Lopressor - PO 25 mg BID TARYN Administration Home Medications Medication Instructions Recorded Mesalamine [Apriso] 1.5 gm PO DAILY 03/15/19 ASSESSMENT AND PLAN: Patient is a 23yo male with pmhx of HTN, Crohn's disease,possible HOCM as per patient had echo done in the past and was told he haS ventricular enlargement presents in the ED with chest pain. 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 Patient will follow up with for the echo and the [facility] as per cardio ok to have the echo as an outpatient since patient does not want to stay in the hospital for the echo. blood pressure is stable, will discharge the patient on lopressor and Lisinopril. #Elevated CPK s/p IVf discharge patient home on lisinopril and lopressor.
--- NOTE | 2019-03-16 09:07 | EKG ---
Test Reason : Blood Pressure : / mmHG Vent. Rate : 101 BPM Atrial Rate : 101 BPM P-R Int : 130 ms QRS Dur : 106 ms QT Int : 324 ms P-R-T Axes : 063 067 022 degrees QTc Int : 420 ms SINUS TACHYCARDIA POSSIBLE LEFT VENTRICULAR HYPERTROPHY NO PREVIOUS ECGS AVAILABLE Confirmed by DILAN DIAZ MD ([id number]) on 03/16/2019 9:07:01 AM Referred By: Confirmed By:DILAN DIAZ MD
[2019-03-16] MEDS: METOPROLOL TARTRATE 25 MG TABLET (FP) PO SCH (09:09)
--- NOTE | 2019-03-16 09:12 | PN ---
Progress Note, Physician Chief Complaint: Not in distress History of Present Illness: Patient was seen and examined. Awake and alert. Chart was reviewed Denies chest pain, SOB or palpitations - Current Medication List Current Medications: Active Medications Lisinopril (Prinivil) 10 mg PO DAILY [facility] Metoprolol Tartrate (Lopressor -) 25 mg PO BID [facility] Last Admin: 03/15/19 21:32 Dose: 25 mg - Objective Vital Signs: Vital Signs Temperature 97.8 F 03/16/19 06:00 Pulse Rate 59 L 03/16/19 06:00 Respiratory Rate 18 03/16/19 06:00 Blood Pressure 140/68 03/16/19 06:00 O2 Sat by Pulse Oximetry (%) 99 03/15/19 21:00 Eyes: Yes: PERRL HENT: Yes: Atraumatic Neck: Yes: Supple Cardiovascular: Yes: Regular Rate and Rhythm, S1, S2 Respiratory: Yes: CTA Bilaterally Gastrointestinal: Yes: Normal Bowel Sounds, Soft. No: Tenderness Edema: No Additional Findings/Remarks: - Review of Systems Constitutional: denies: Chills, Fever Cardiovascular: denies Chest Pain. denies: Palpitations, Shortness of Breath Respiratory: denies: Cough, SOB, SOB on Exertion Gastrointestinal: denies: Abdominal Pain, Constipation, Diarrhea, Melena, Nausea , Rectal Bleeding, Vomiting Musculoskeletal: denies: Joint Pain Neurological: denies: Dizziness, Headache, Seizure, Syncope Labs: CBC, BMP 03/15/19 06:30 03/16/19 06:00 Problem List - Problems (1) Crohns disease Code(s): K50.90 - CROHN'S DISEASE, UNSPECIFIED, WITHOUT COMPLICATIONS (2) Chest pain Code(s): R07.9 - CHEST PAIN, UNSPECIFIED Qualifiers: Chest pain type: unspecified Qualified Code(s): R07.9 - Chest pain, unspecified (3) Hypertension Code(s): I10 - ESSENTIAL (PRIMARY) HYPERTENSION Qualifiers: Hypertension type: unspecified Qualified Code(s): I10 - Essential (primary ) hypertension Assessment/Plan 1. HTN 2. Chest pain syndrome, atypical 3. Crohn's disease PLAN: 1. Continue Metoprolol Tartrate and Lisinopril for now. Avoid vasodilators in case he does have HOCM 2. Echocardiography to assess LV/RV and valvular function can be done as outpatient. HOCM needs to be ruled out 3. Treatment for Crohn's 4. Troponins are negative Further plans are to follow. Follow up as outpatient. Discharge planning Swapnil Bennett MD
[2019-03-16] MEDS ORDERED: amLODIPine BESYLATE 5 MG TABLET (FP) PO SCH (10:00)
[2019-03-16] MEDS ORDERED: LISINOPRIL 10 MG TABLET (FP) PO SCH (10:00)
[2019-03-16 10:28] VITALS: TEMP 98
[2019-03-16] MEDS ORDERED: ACETAMINOPHEN 325 MG TABLET (FP) PO ONE (10:28)
--- NOTE | 2019-03-16 11:44 | PN ---
Progress Note (short form) - Note Progress Note: RENAL Havin a tothache otherwise well Last Vital Signs Temp Pulse Resp BP Pulse Ox 98 F 68 18 160/89 98 03/16/19 10:00 03/16/19 10:00 03/16/19 10:00 03/16/19 10:00 03/16/19 09:00 lungs clear cvs s1s2 rr abd soft ext no edema neuro a+ox3 CBC, BMP 03/15/19 06:30 03/16/19 06:00 Current Medications Generic Name Dose Route Start Last Admin Trade Name Freq PRN Reason Stop Dose Admin Lisinopril 10 mg 03/16/19 10:00 03/16/19 09:09 Prinivil PO 10 mg DAILY TARYN Administration Metoprolol Tartrate 25 mg 03/15/19 22:00 03/16/19 09:09 Lopressor - PO 25 mg BID TARYN Administration IMPRESSION essential hypertension obesity PLAN continue current meds salt restriction and weight loss can be followed up as outpatient echo MV
[2019-03-16 12:26] VITALS: BP 140/84; PULSE 78
--- NOTE | 2019-03-16 13:17 | DS ---
Physical Exam: SUBJECTIVE: Patient seen and examined at bedside. Content, without complaint. Looking forward to going home OBJECTIVE: Vital Signs Period Temp Pulse Resp BP Sys/Domingo Pulse Ox Last 24 Hr 97.7 F-98.1 F 59-84 16-19 123-160/68-89 98-99 PHYSICAL EXAM GENERAL: The patient is awake, alert in NAD HEAD: Normal with no signs of trauma. NECK: Trachea midline, supple. LUNGS: Breath sounds equal, clear to auscultation bilaterally, no wheezes, no crackles, no accessory muscle use. HEART: Regular rate and rhythm, S1, S2 without murmur, rub or gallop. ABDOMEN: Soft, nontender, nondistended, normoactive bowel sounds EXTREMITIES: 2+ pt pulses, warm, well-perfused, no edema. NEUROLOGICAL: Cranial nerves II through XII grossly intact. PSYCH: Normal mood, normal affect. LABS Laboratory Results 03/15/19 03/16/19 17:30 06:00 Sodium 142 Potassium 4.6 Chloride 106 Carbon Dioxide 29 Anion Gap 8 BUN 11.7 Creatinine 1.0 Est GFR (CKD-EPI)AfAm 122.41 Est GFR (CKD-EPI)NonAf 105.62 Random Glucose 85 Calcium 9.7 Phosphorus 4.4 Magnesium 2.4 Total Bilirubin 1.0 AST 41 H ALT 105 H Alkaline Phosphatase 76 Total Protein 8.1 Albumin 4.5 Triglycerides 119 Cholesterol 133 Total LDL Cholesterol 82 HDL Cholesterol 32 L Urine Color Yellow Urine Appearance Clear Urine pH 6.0 Ur Specific [place] 1.014 Urine Protein Negative Urine Glucose (UA) Negative Urine Ketones Negative Urine Blood Negative Urine Nitrite Negative Urine Bilirubin Negative Urine Urobilinogen 0.2 Ur Leukocyte Esterase Negative 03/14/19 03/15/19 03/15/19 22:25 05:15 06:20 AST ALT Troponin I < 0.02 < 0.02 Opiates Screen Negative Methadone Screen Negative Barbiturate Screen Negative Phencyclidine Screen Negative Ur Amphetamines Screen Negative MDMA (Ecstasy) Screen Negative Benzodiazepines Screen Negative Cocaine Screen Negative U Marijuana (THC) Screen Negative 03/15/19 03/15/19 03/16/19 06:30 06:30 06:00 AST 29 41 H ALT 93 H 105 H Troponin I < 0.02 Opiates Screen Testing 03/14/19: CXR: no acute chest pathology 03/15/19: Renal sono: both kidneys appear unremarkable. included portion of the liver is echogenic suggestive of fatty infiltration vs. hepatocellular dz. 03/15/19: CTAP: normal enhancement and size of the abdominal aorta down to the bifurcation, normal enhancement of both renal arteries without evidence of hemodynamically significant stenosis. fatty liver, questionable few tiny diverticula in the proximal sigmoid colon without evidence of acute diverticulitis. notes made of slightly prominent soft tissue in the thymus bed likely residual thymus tissue HOSPITAL COURSE: Date of Admission:03/14/19 Date of Discharge: 03/16/19 Admit diagnosis: HTN emergency, chest pain 23 y/o M w/PMH Crohn's disease, possible hypertrophic CM who presented to the ED with chest pain. On DOA, stated chest pain began while at a baseball game. Described as non-radiating, pressure-like pain localized to the mid-sternum. Has had similar pain like this in the past, but as recent BP check showed systolic in the 170's, pt came to the ED for further evaluation. Has known history of HTN, but stopped taking his BP medications on own. After pt was admitted, his troponins were trended and (-) x3. He was monitored on telemetry and seen by cardio. BP was managed with amlodipine and lopressor, which pt has been d/c on. On d/c his BP improved. Vasodilators will be avoided in case of HOCM. He will undergo ECHO as an outpatient, and will also have repeat LFTs done at that time. Pt's CK was trended and he was hydrated with IVF. Pt to follow up with cardio, PCP. Minutes to complete discharge: 45 Discharge Summary Reason For Visit: CHEST PAIN Current Active Problems Crohns disease (Chronic) Hypertension (Chronic) Condition: Stable - Instructions Diet, Activity, Other Instructions: You were in the hospital because you had chest pain and an elevated blood pressure. Your blood pressure was managed with medication. You saw a station air traffic control specialist while you were here. Medications Please take the following medications for your blood pressure: 1. Lisinopril 10mg once a day 2. Metoprolol tartate 25mg twice a day Care It is important that you monitor your blood pressure at home. You should avoid foods with excess salt to help your blood pressure and adhere to a healthy diet. You should drink adequate water to stay hydrated. Testing You will need to have an ECHO (picture of your heart) done upon discharge with your station air traffic control specialist. You will also need to have lab work repeated in 1 week with your primary care doctor - you will need your liver tests repeated. Follow up Please follow with a primary care doctor in 1 week. If you do not have one, we will refer you to the [facility]. Please also follow up with a station air traffic control specialist, Dr. Swapnil chang who saw you in the hospital - in 1 week to schedule your ECHO and to discuss your visit. If you develop chest pain, shortness of breath, or notice that your blood pressure is very high please go to the hospital. Referrals: [facility] [place] [facility] [place] [Provider Group] - 1 Week Swapnil Chang MD [Staff Physician] - 1 Week Disposition: HOME - Home Medications Comprehensive Discharge Medication List: Ambulatory Orders Mesalamine [Apriso] 1.5 gm PO DAILY 03/15/19 Lisinopril [Prinivil] 10 mg PO DAILY #30 tablet 03/16/19 Metoprolol Tartrate [Lopressor -] 25 mg PO BID #60 tablet 03/16/19 This patient is new to me today: Yes Date on this admission: 03/16/19 Emergency Visit: No Critical Care patient: No - Discharge Referral Referred to [facility] Med P.C.: No
== END 2019-03-16 13:16 | disposition home or self-care (01) | DRG 305 ==
LOC: JER 20:34 → JERBED 23:43 → J4S 03-15 12:43
PROVIDERS: ADMIT Internal Medicine; ATTEND Internal Medicine
DX: I16.1 Hypertensive emergency (principal); K50.90 Crohn's disease, unspecified, without complications; I42.2 Other hypertrophic cardiomyopathy; R07.89 Other chest pain; I10 Essential (primary) hypertension; I51.7 Cardiomegaly; D75.1 Secondary polycythemia; E66.9 Obesity, unspecified; Z68.39 Body mass index [BMI] 39.0-39.9, adult; K76.0 Fatty (change of) liver, not elsewhere classified; Z91.14 Patient's other noncompliance with medication regimen
CPT/HCPCS: 36415; 71046-TC-FY; 74174-TC; 76775-TC; 80048; 80053; 80061; 80307; 81003; 82550; 82553; 82668; 83036; 83721; 83735; 83880; 84100; 84443; 84484; 85025; 85044; 85379; 85651; 86140; 93005; 93010; 99283-25